=== PATIENT | male | born 1980 | race Two or more races ===

== ENCOUNTER 2024-06-13 19:39 | Emergency (ER) | payer OTHER ==
[~2024-06-13] VITALS: Ht 170.2 cm; Wt 102.6 kg
[2024-06-13 19:55] VITALS: BP 156/105; PULSE 78; RESP 17; TEMP 98.6; O2SAT 97
[2024-06-13] MEDS: TETANUS-DIPTH-ACEL PERTUSSIS 0.5ML SYR Tdap IM ONE (21:01)
[2024-06-13] MEDS: LIDOCAINE 1% HCL (LOCAL ANESTH.) INJ 20ML MDV ID ONE (21:01)
[2024-06-13] MEDS: OXYCODONE W/ ACETAMINOPHEN 5/325MG TABLET PO ONE (21:02)
[2024-06-13] MEDS: HYDROcodone-ACET 5/325MG TAB PO ONE (21:54)
[2024-06-13] MEDS ORDERED: HYDR-4902 PO ×2 (22:32→22:50)
[2024-06-13] MEDS ORDERED: AUG875T PO (22:32)
== END 2024-06-13 23:25 | disposition home or self-care (01) ==
LOC: ER 19:39
DX: S61.212A Laceration without foreign body of right middle finger without damage to nail, initial encounter (principal); X50.0XXA Overexertion from strenuous movement or load, initial encounter; Y93.89 Activity, other specified; Y92.89 Other specified places as the place of occurrence of the external cause; Y99.8 Other external cause status
CPT/HCPCS: 12002; 73140; 90471; 90715; 99283; J2003